=== PATIENT | male | born 1970 | race Caucasian/White ===

== ENCOUNTER → 2017-11-20 | Outpatient (CLI) | payer BC ==
[~2017-11-20] MED LIST: NO HOME MEDICATIONS; PEPCID 20MG TAB20 MG PO; PERCOCET 5/321 UDTAB PO; PHENERGAN 25 TA25 MG PO
== END ==
LOC: COL.LAB 10:57
DX: Z01.812 Encounter for preprocedural laboratory examination (principal)

== ENCOUNTER → 2017-11-21 | Outpatient (CLI) | payer BC | LOC: COL.RAD 12:07 | DX: J84.10 Pulmonary fibrosis, unspecified (principal) | CPT/HCPCS: Q9967 ==

== ENCOUNTER → 2019-03-12 | Outpatient (CLI) | payer BC | LOC: COL.VAS 14:07 | DX: I35.1 Nonrheumatic aortic (valve) insufficiency (principal) ==

== ENCOUNTER 2021-09-30 11:45 | Emergency (ER) | payer BC ==
[~2021-09-30] VITALS: Ht 180.3 cm; Wt 131.8 kg
[2021-09-30 12:02] VITALS: TEMP 98.1
[2021-09-30] MEDS ORDERED: CEPHALEXIN500 M1 PO (13:51)
[2021-09-30 13:54] VITALS: BP 147/83; PULSE 89
== END 2021-09-30 14:05 | disposition home or self-care (01) ==
LOC: COL.ER 11:45
DX: S01.412A Laceration without foreign body of left cheek and temporomandibular area, initial encounter (principal); V86.55XA Driver of 3- or 4- wheeled all-terrain vehicle (ATV) injured in nontraffic accident, initial encounter

== ENCOUNTER → 2021-10-08 | Outpatient (CLI) | payer BC ==
[~2021-10-08] MED LIST changes: +CEPHALEXIN500 M1 PO
[2021-10-08 09:48] VITALS: BP 132/84; PULSE 76; TEMP 98
== END ==
LOC: COL.ER 08:51
DX: Z48.02 Encounter for removal of sutures (principal)

== ENCOUNTER 2022-12-05 05:34 | Day surgery (SDC) | payer BC ==
[2022-12-05] VITALS (7 sets, daily range): BP systolic 119–138; BP diastolic 60–83; PULSE 68–92; TEMP 97.1–98.7
[~2022-12-05] VITALS: Ht 180.3 cm; Wt 138.2 kg
[2022-12-05] MEDS ORDERED: CELEXA 20MG20 MG/TAB PO (07:13)
[2022-12-05] MEDS ORDERED: NORVASC 5MG5 MG/TAB PO (07:13)
[2022-12-05] MEDS ORDERED: COZAAR100 MG PO (07:13)
[2022-12-05] MEDS ORDERED: VITAMIN C PO (07:14)
[2022-12-05] MEDS ORDERED: MOBIC15 MG PO (07:14)
[2022-12-05] MEDS ORDERED: MAGNESIUM PO (07:15)
[2022-12-05] MEDS ORDERED: ZINC PO (07:15)
[2022-12-05] MEDS ORDERED: VITAMIN D PO (07:15)
[2022-12-05] MEDS ORDERED: ASPIRIN 81M81 MG/TA2 PO (07:16)
[2022-12-05] MEDS ORDERED: B12 PO (07:16)
[2022-12-05] MEDS ORDERED: MULTI VITAMINS1 TAB PO (07:16)
[2022-12-05] MEDS ORDERED: LYSINE (07:17)
[2022-12-05] MEDS ORDERED: OMEGA-3 1000 MG1 CAP PO (07:17)
[2022-12-05] MEDS ORDERED: MELATONIN PO (07:17)
[2022-12-05] MEDS ORDERED: VALU-DRYL ALLER25 MG PO (07:18)
--- NOTE | 2022-12-05 09:50 | NUR ---
0837 RETURNS TO ROOM 1 PER CART. AWAKE, ALERT. HOB ELEVATED 40 DEGREES. RESP UNLABORED. DEEP BREATHES WELL ON REQUEST. O2 PER NC. ABD SOFT. MID ABD DRESSING CLEAN DRY AND INTACT. DENIES PAIN. IN ROOM. CALL LIGHT AT SIDE. 0850 HOB ELEVATED 60 DEGREES. TOLERATES PO JUICE WITHOUT NAUSEA 0905 ABD REMAINS SOFT. DRESSING CLEAN DRY AND INTACT 0920 O2 OFF. DENIES PAIN 0930 DISCHARGE INSTRUCTIONS REVIEWED. PATIENT VERBALIZES UNDERSTANDING. COPY PROVIDED IN DISCHARGE FOLDER 0942 SITS ON EDGE OF BED. DRESSES WITH MINIMAL ASSISTANCE FROM
== END 2022-12-05 09:51 | disposition home or self-care (01) ==
LOC: SDCO 05:34
DX: K42.0 Umbilical hernia with obstruction, without gangrene (principal); G89.18 Other acute postprocedural pain; G47.33 Obstructive sleep apnea (adult) (pediatric); F17.220 Nicotine dependence, chewing tobacco, uncomplicated
CPT/HCPCS: C1781; J0330; J0690; J1100; J1885; J2250; J2370; J2405; J2704; J2765; J2795; J3010; J7120